=== PATIENT | male | born 1990 | race Caucasian/White ===

== ENCOUNTER 2023-04-24 22:22 | Emergency (ER) | payer OTHER, SELFPAY ==
[2023-04-24 22:35] VITALS: BP 145/91; PULSE 102; RESP 20; TEMP 37.4; O2SAT 97; BMI 30.3
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
== END 2023-04-25 | disposition home or self-care (01) ==
PROVIDERS: Emergency Provider Emergency Medicine Emergency Medical Services
DX: S16.1XXA Strain of muscle, fascia and tendon at neck level, initial encounter (principal); S39.012A Strain of muscle, fascia and tendon of lower back, initial encounter; S80.01XA Contusion of right knee, initial encounter; V43.52XA Car driver injured in collision with other type car in traffic accident, initial encounter; Y93.89 Activity, other specified; Y92.410 Unspecified street and highway as the place of occurrence of the external cause; Y99.9 Unspecified external cause status
CPT/HCPCS: 99283

== ENCOUNTER 2023-08-26 22:20 | Emergency (ER) | payer OTHER, SELFPAY ==
--- NOTE | ~2023-08-26 | XR_ITS ---
EXAMINATION: XR CERVICAL SPINE CLINICAL INFORMATION: Neck pain for 2 months COMPARISON: None available. TECHNIQUE: 2 views of the cervical spine were obtained. FINDINGS: There are no prevertebral soft tissue or bony abnormalities demonstrated. No compression fractures or subluxations are identified. Alignment is maintained at the atlanto-axial articulation. The disc spaces are preserved. No endplate changes are seen. The prevertebral soft tissues are normal. The foramina are patent. XR/XR cervical spine 2V IMPRESSION: Unremarkable examination.
[2023-08-26 22:28] VITALS: BP 141/95; PULSE 99; RESP 16; TEMP 36.9; O2SAT 99; BMI 30.3
--- NOTE | 2023-08-27 02:21 | PC.NURSE ---
pt made registration aware was leaving. pt left without being seen
== END 2023-08-27 02:24 | disposition left against medical advice (07) ==
PROVIDERS: Emergency Provider Emergency Medicine
DX: M54.2 Cervicalgia (principal)
CPT/HCPCS: 72040; 99281; 99283